=== PATIENT | male | born 1985 | race African-American/Black ===

== ENCOUNTER 2017-12-17 17:58 | Inpatient (IN) ==
[2017-12-17] MEDS ORDERED: PANTOPRAZOLE 40 MG VIAL IV STA (18:24)
[2017-12-17] MEDS ORDERED: PANTOPRAZOLE 40 MG VIAL IV ONE (19:00)
[2017-12-17 19:06] LABS: Basophils % 0.2 % (0.0-0.8); Eosinophils % 0.3 % (0.00-10.9); Hematocrit 25.2 VOL% (42.0-52.0); Hemoglobin 8.3 GM/DL (14.0-18.0); Immature Granulocytes % 0.6 %; Immature Granulocytes Absolute 0.05 #; Lymphocytes # 1.4 10*3/uL (1.4-4.0); Lymphocytes % 14.9 % (21.2-54.2); Mean Corpuscular HGB Conc 32.9 GM/DL (32-36); Mean Corpuscular Hemoglobin 32 PG (27-34); Mean Corpuscular Volume 95.8 FL (87-102); Mean Platelet Volume 9.6 FL (9.6-12.0); Monocytes # 0.6 10*3/uL (0.11-0.8); Monocytes % 6.4 % (1.7-12.7); Neutrophils % 77.6 % (38.7-73.9); Platelet Count 264 T/CUMM (130-400); Red Blood Count 2.63 MC/CUMM (3.8-5.5); Red Cell Distribution Width 13.3 % (9.3-17.3); White Blood Count 9.1 T/CUMM (4-12)
[2017-12-17] MEDS ORDERED: ACETAMINOPHEN 325 MG TABLET PO PRN (19:41)
[2017-12-17] MEDS ORDERED: ZALEPLON 5 MG CAPSULE PO PRN (19:41)
[2017-12-17] MEDS ORDERED: ONDANSETRON 4 MG/2 ML VIAL IV PRN (19:41)
[2017-12-17] MEDS ORDERED: SODIUM CHLORIDE 0.9% 1,000 ML IV PRN (19:41)
[2017-12-17 19:46] LABS: Alanine Aminotransferase 20 U/L (16-61); Albumin 3.7 G/DL (3.4-5.0); Alkaline Phosphatase 68 U/L (45-117); Aspartate Amino Transferase 11 U/L (0-37); Blood Urea Nitrogen 17 MG/DL (7-18); Calcium 8.1 MG/DL (8.5-10.1); Glucose 90 MG/DL (74-106); Osmolality,Calculated 278.5 MOS/KG (273-304); Sodium 139 MMOL/L (136-145); Total Protein 6.2 G/DL (6.4-8.3); Troponin I Only < 0.015 NG/ML (0.00-0.045)
[2017-12-17] MEDS ORDERED: SODIUM CHLORIDE 0.9% 1,000 ML IV ONE (19:46)
[2017-12-17 21:21] LABS: Hematocrit 24.2 VOL% (42.0-52.0); Hemoglobin 8.2 GM/DL (14.0-18.0)
[2017-12-17 21:41] LABS: PT Patient Result 10.4 SECS; Partial Thromboplastin Time 24.9 SECS (0-40)
[2017-12-18 07:00] LABS: Basophils % 0.3 % (0.0-0.8); Eosinophils # 0.1 10*3/uL (0.0-0.87); Eosinophils % 1.4 % (0.00-10.9); Hematocrit 26.7 VOL% (42.0-52.0); Hemoglobin 8.7 GM/DL (14.0-18.0); Immature Granulocytes % 0.5 %; Immature Granulocytes Absolute 0.03 #; Lymphocytes # 1.6 10*3/uL (1.4-4.0); Mean Corpuscular HGB Conc 32.6 GM/DL (32-36); Mean Corpuscular Hemoglobin 31 PG (27-34); Mean Corpuscular Volume 93.7 FL (87-102); Mean Platelet Volume 10.2 FL (9.6-12.0); Monocytes # 0.6 10*3/uL (0.11-0.8); Monocytes % 9.6 % (1.7-12.7); Neutrophils % 63.2 % (38.7-73.9); Platelet Count 202 T/CUMM (130-400); Red Blood Count 2.85 MC/CUMM (3.8-5.5); Red Cell Distribution Width 14.6 % (9.3-17.3); White Blood Count 6.4 T/CUMM (4-12)
[2017-12-18 07:02] LABS: Hematocrit 26.8 VOL% (42.0-52.0); Hemoglobin 8.6 GM/DL (14.0-18.0)
[2017-12-18] MEDS: PANTOPRAZOLE 40 MG VIAL IV SCH ×2 (08:55→21:23)
[2017-12-18] MEDS: SODIUM CHLORIDE 0.9% 1,000 ML IV SCH ×3 (08:56→17:10)
[2017-12-18] MEDS ORDERED: LIDOCAINE 100 MG/5 ML SYRINGE ONE (14:52)
[2017-12-18] MEDS ORDERED: PROPOFOL 200 MG/20 ML VIAL IV ONE (14:52)
[2017-12-18 15:54] LABS: Hematocrit 28.3 VOL% (42.0-52.0); Hemoglobin 9.4 GM/DL (14.0-18.0)
[2017-12-19] MEDS: SODIUM CHLORIDE 0.9% 1,000 ML IV SCH ×2 (02:18→07:15)
[2017-12-19] MEDS: PANTOPRAZOLE 40 MG VIAL IV SCH (08:44)
[2017-12-19 11:26] VITALS: BP 133/72
== END 2017-12-19 11:35 | disposition home or self-care (01) | DRG 378 ==
LOC: EDBD → EDUNIT# → N.ED 17:58 → N.EDINP 19:39 → N.5E 20:00
PROVIDERS: ADMIT Internal Medicine; ATTEND Internal Medicine

== ENCOUNTER 2018-02-20 00:25 | Inpatient (IN) ==
[2018-02-20] MEDS ORDERED: SODIUM CHLORIDE 0.9% 2,000 ML IV STA (00:52)
[2018-02-20 01:04] LABS: Basophils # 0.1 10*3/uL (0.0-0.2); Basophils % 0.4 % (0.0-0.8); Eosinophils # 0.2 10*3/uL (0.0-0.87); Eosinophils % 1.3 % (0.00-10.9); Hematocrit 26.8 VOL% (42.0-52.0); Hemoglobin 8.1 GM/DL (14.0-18.0); Immature Granulocytes % 0.6 %; Immature Granulocytes Absolute 0.07 #; Lymphocytes # 1.4 10*3/uL (1.4-4.0); Lymphocytes % 12.9 % (21.2-54.2); Mean Corpuscular HGB Conc 30.2 GM/DL (32-36); Mean Corpuscular Hemoglobin 26 PG (27-34); Mean Corpuscular Volume 86.5 FL (87-102); Monocytes # 1.3 10*3/uL (0.11-0.8); Monocytes % 11.3 % (1.7-12.7); Neutrophils # 8.2 10*3/uL (1.4-7.4); Neutrophils % 73.5 % (38.7-73.9); Platelet Count 304 T/CUMM (130-400); Red Cell Distribution Width 14.9 % (9.3-17.3); White Blood Count 11.2 T/CUMM (4-12)
[2018-02-20 01:14] LABS: PT Patient Result 10.4 SECS
[2018-02-20 01:24] LABS: Alanine Aminotransferase 18 U/L (16-61); Albumin 3.5 G/DL (3.4-5.0); Alkaline Phosphatase 80 U/L (45-117); Aspartate Amino Transferase 14 U/L (0-37); Bilirubin,Total < 0.39 MG/DL (0.2-1.0); Blood Urea Nitrogen 33 MG/DL (7-18); Calcium 8.2 MG/DL (8.5-10.1); Glucose 92 MG/DL (74-106); Osmolality,Calculated 287.3 MOS/KG (273-304); Potassium 4.1 MMOL/L (3.5-5.1); Sodium 141 MMOL/L (136-145); Total Protein 6.3 G/DL (6.4-8.3); Troponin I Only < 0.015 NG/ML (0.00-0.045)
[2018-02-20] MEDS ORDERED: SODIUM CHLORIDE 0.9% 1,000 ML IV PRN ×2 (03:13→05:30)
[2018-02-20] MEDS ORDERED: ONDANSETRON 4 MG/2 ML VIAL IV PRN (07:59)
[2018-02-20] MEDS ORDERED: PANTOPRAZOLE 40 MG VIAL IV SCH (07:59)
[2018-02-20] MEDS ORDERED: SODIUM CHLORIDE 0.9% 1,000 ML IV SCH (07:59)
[2018-02-20] MEDS ORDERED: MORPHINE 2 MG/1 ML SYRINGE IV PRN (07:59)
[2018-02-20 13:17] LABS: Hematocrit 27.2 VOL% (42.0-52.0); Hemoglobin 8.4 GM/DL (14.0-18.0)
[2018-02-20 17:08] VITALS: BP 134/84
== END 2018-02-20 17:47 | disposition home or self-care (01) | DRG 811 ==
LOC: N.ED 00:25 → N.EDINP 03:54 → N.5E 04:19
PROVIDERS: ADMIT Internal Medicine; ATTEND Internal Medicine